=== PATIENT | female | born 1995 | race Caucasian/White ===

== ENCOUNTER 2018-03-14 09:58 | Emergency (ER) | payer OTHER ==
[~2018-03-14] VITALS: Ht 175.3 cm; Wt 81.6 kg
[~2018-03-14 09:58] MED LIST: MUCINEX DM TABL1 BOX
[2018-03-14] MEDS ORDERED: CIPRO500 MG PO (12:28)
== END 2018-03-14 12:38 | disposition home or self-care (01) ==
LOC: ER 09:58
DX: N39.0 Urinary tract infection, site not specified (principal)

== ENCOUNTER 2020-09-13 16:33 | Emergency (ER) | payer OTHER ==
[~2020-09-13] VITALS: Ht 175.3 cm; Wt 90.7 kg
[~2020-09-13 16:33] MED LIST changes: +CIPRO500 MG PO
[2020-09-13] MEDS ORDERED: BACTRIM DS TAB1 EACH PO (18:31)
[2020-09-13] MEDS ORDERED: DICLOFENAC SODI75 MG PO (18:31)
== END 2020-09-13 18:43 | disposition home or self-care (01) ==
LOC: ER 16:33
DX: N83.292 Other ovarian cyst, left side (principal)

== ENCOUNTER 2020-09-21 00:27 | Emergency (ER) | payer OTHER ==
[~2020-09-21] VITALS: Ht 175.3 cm; Wt 90.7 kg
[~2020-09-21 00:27] MED LIST changes: +BACTRIM DS TAB1 EACH PO; +DICLOFENAC SODI75 MG PO
[2020-09-21] MEDS ORDERED: FEOSOL325 MG (00:44)
== END 2020-09-21 02:23 | disposition home or self-care (01) ==
LOC: ER 00:27
DX: R20.8 Other disturbances of skin sensation (principal); R07.89 Other chest pain; F41.0 Panic disorder [episodic paroxysmal anxiety]; Z03.818 Encounter for observation for suspected exposure to other biological agents ruled out

== ENCOUNTER → 2021-06-09 | Emergency (ER) | payer OTHER ==
[~2021-06-09] VITALS: Ht 175.3 cm; Wt 96.2 kg
[~2021-06-09] MED LIST changes: +FEOSOL325 MG; +NORFLEX100MG PO; +ZITHROMAX500 MG PO
== END | disposition home or self-care (01) ==
LOC: ER 10:33
DX: M54.5 Low back pain (principal); R20.2 Paresthesia of skin; Z03.818 Encounter for observation for suspected exposure to other biological agents ruled out

== ENCOUNTER 2021-11-17 14:23 | Emergency (ER) | payer OTHER ==
[~2021-11-17] VITALS: Ht 175.3 cm; Wt 95.3 kg
[2021-11-17] MEDS ORDERED: TUSNEL LIQUID178 ML PO (19:24)
[2021-11-17] MEDS ORDERED: FLONASE ALLERG9.9 ML NASAL (19:24)
[2021-11-17] MEDS ORDERED: MEDROLPACK PO (19:24)
== END 2021-11-17 19:57 | disposition home or self-care (01) ==
LOC: ER 14:23
DX: J40 Bronchitis, not specified as acute or chronic (principal); R05.9 Cough, unspecified

== ENCOUNTER 2021-11-22 12:11 | Emergency (ER) | payer OTHER ==
[~2021-11-22] VITALS: Ht 175.3 cm; Wt 95.3 kg
[~2021-11-22 12:11] MED LIST changes: +FLONASE ALLERG9.9 ML NASAL; +MEDROLPACK PO; +TUSNEL LIQUID178 ML PO
[2021-11-22] MEDS ORDERED: MORGIDOX100 MG (12:45)
[2021-11-22] MEDS ORDERED: PEPCID AC20 MG PO (16:41)
[2021-11-22] MEDS ORDERED: ZITHROMAX500 MG PO (16:41)
[2021-11-22] MEDS ORDERED: VISTARIL50 MG PO (16:41)
== END 2021-11-22 16:46 ==
LOC: ER 12:11 → EMR PED 12:13 → ER 12:13
DX: J06.9 Acute upper respiratory infection, unspecified (principal); F41.8 Other specified anxiety disorders; E86.0 Dehydration; K29.00 Acute gastritis without bleeding; A49.3 Mycoplasma infection, unspecified site

== ENCOUNTER 2021-12-01 01:18 | Emergency (ER) | payer OTHER ==
[~2021-12-01] VITALS: Ht 175.3 cm; Wt 90.7 kg
[~2021-12-01 01:18] MED LIST changes: +MORGIDOX100 MG; +PEPCID AC20 MG PO; +VISTARIL50 MG PO
[2021-12-01] MEDS ORDERED: B12 ACTIVE1000 MCG PO (04:31)
== END 2021-12-01 04:39 ==
LOC: ER 01:18
DX: E86.0 Dehydration (principal); R20.2 Paresthesia of skin

== ENCOUNTER 2022-03-14 16:36 | Emergency (ER) | payer OTHER ==
[~2022-03-14] VITALS: Ht 175.3 cm; Wt 89.8 kg
[~2022-03-14 16:36] MED LIST changes: +B12 ACTIVE1000 MCG PO
== END 2022-03-14 22:41 | disposition home or self-care (01) ==
LOC: ER 16:36
DX: K52.9 Noninfective gastroenteritis and colitis, unspecified (principal)

== ENCOUNTER → 2022-05-25 | Emergency (ER) | payer OTHER | END | disposition home or self-care (01) | LOC: ER 17:58 | DX: S20.219A Contusion of unspecified front wall of thorax, initial encounter (principal); S10.93XA Contusion of unspecified part of neck, initial encounter; X58.XXXA Exposure to other specified factors, initial encounter; Y93.9 Activity, unspecified; Y92.9 Unspecified place or not applicable; Y99.9 Unspecified external cause status ==

== ENCOUNTER 2022-09-12 16:21 | Emergency (ER) | payer OTHER ==
[~2022-09-12] VITALS: Ht 170.2 cm; Wt 59.0 kg
== END 2022-09-12 21:28 | disposition home or self-care (01) ==
LOC: ER 16:21
DX: R10.84 Generalized abdominal pain (principal); N83.202 Unspecified ovarian cyst, left side

== ENCOUNTER 2024-05-26 06:32 | Emergency (ER) | payer OTHER ==
[~2024-05-26] VITALS: Ht 175.3 cm; Wt 81.6 kg
[2024-05-26] MEDS ORDERED: ONDANSETRON HCL 2 MG/ML VIAL IV STA (07:50)
[2024-05-26] MEDS ORDERED: HYOSCYAMINE SULFATE 0.125 MG TAB.SUBL SL STA (07:50)
[2024-05-26] MEDS ORDERED: FAMOTIDINE/PF 20 MG/2 ML VIAL IV PUSH STA (07:50)
[2024-05-26] MEDS ORDERED: 0.9 % SODIUM CHLORIDE 1,000 ML IV ONE (08:00)
[2024-05-26] MEDS ORDERED: HYOSCYAMINE SULFATE 0.125 MG TAB.SUBL ONE (08:01)
[2024-05-26] MEDS ORDERED: ONDANSETRON HCL 2 MG/ML VIAL ONE (08:01)
[2024-05-26] MEDS ORDERED: FAMOtidine 200mg/20ml VIAL ONE (08:02)
[2024-05-26] MEDS ORDERED: BARIUM SULFATE 450 ML ORAL.SUSP PO ONE (08:04)
[2024-05-26 08:32] LABS: HEMATOCRIT 31.1 % (36.0-45.00); HEMOGLOBIN 10.4 g/dL (12.0-15.00); MEAN CELL VOLUME 79.5 fL (80.00-100.00); MEAN CORPUSCULAR HEMOGLOBIN 26.7 pg (27.00-32.0); MEAN CORPUSCULAR HGB CONC 33.6 g/dl (32.0-36.0); PLATELET COUNT 305 K/uL (150-450); RED BLOOD COUNT 3.91 M/uL (4.00-6.00); RED CELL DISTRIBUTION WIDTH 14.9 % (11.5-14.5)
[2024-05-26 08:43] LABS: PH,URINE 6.5 (5.0-8.0); URINE APPEARANCE Clear; URINE BILIRRUBIN Negative (NEGATIVE); URINE BLOOD Negative; URINE COLOR Dark Yellow; URINE GLUCOSE Negative (NEGATIVE); URINE LEUKOCYTE Negative; URINE NITRATE Negative; URINE PROTEIN Trace (NEGATIVE)
[2024-05-26 08:44] LABS: URINE BACTERIA 1661.7 uL (0.0-1933); URINE EPITHELIAL CELLS 24.5 uL (0.0-38.8); URINE RBC 23.6 uL (0.0-20.8)
[2024-05-26 09:16] LABS: INR 1.03; PARTIAL THROMBOPLASTIN TIME 26.5 SECONDS (22.0-34.0); PROTHROMBIN TIME 10.8 SECONDS (9.0-11.5)
[2024-05-26 09:19] LABS: ALBUMIN 3.4 gm/dL (3.4-5.0); ALKALINE PHOSPHATASE 53 U/L (50-136); ALT/SGPT 15 U/L (12-78); AMYLASE 31 U/L (25-115); ANION GAP 7 (10.0-20.0); AST/SGOT 10 U/L (15-37); BILIRUBIN TOTAL 0.74 mg/dL (0.3-1.2); BILIRUBIN,CONJUGATED 0.22 mg/dL (0.0-0.2); BILIRUBIN,UNCONJUGATED 0.52 mg/dL (0.0-0.6); BLOOD UREA NITROGEN 6 mg/dL (7-18); BUN CREA RATIO 11 (7.0-25.0); CALCIUM 8.6 mg/dL (8.5-10.1); CARBON DIOXIDE 26 mEq/L (21-32); CHLORIDE 111 mmol/L (98-107); CREATININE SERUM 0.57 mg/dL (0.55-1.02); GLOBULINA 3.6 G/DL (2.4-3.5); GLUCOSE FASTING 86 mg/dL (65-100); LIPASE 24 U/L (13-75); OSMOLALITY SERUM 276 MOSM/KG (275-295); POTASSIUM 3.95 mEq/L (3.5-5.1); SODIUM 140 mmol/L (136-145)
[2024-05-26 09:24] LABS: HCG QUANTITATIVE < 1 mUI/mL (1-3)
== END 2024-05-26 13:20 | disposition home or self-care (01) ==
LOC: ER 06:33
PROVIDERS: General Practice
DX: K52.9 Noninfective gastroenteritis and colitis, unspecified (principal); R10.9 Unspecified abdominal pain
CPT/HCPCS: 36415; 74177; Q9965

== ENCOUNTER 2024-05-28 19:54 | Inpatient (IN) | payer OTHER ==
[~2024-05-28] VITALS: Ht 175.3 cm; Wt 81.6 kg
[2024-05-28] MEDS ORDERED: CIPRO500 MG PO (20:55)
[2024-05-28] MEDS ORDERED: FLAGYL I.V500 MG/100 IV (20:55)
--- NOTE | 2024-05-28 20:56 | NUR ---
PTE ALERTA Y ORIENTADA X3. REIFERE DOLOR POR DIVERTICULOS EN LA PARTE BAJA DEL ABDOMEN. ATWOOD DR.RICKY STEVENS RECOMENDO VENIR A ER SI EL DOLOR SE INTENSIFICABA. SE STALIN SV Y SE UBICA
[2024-05-28] MEDS ORDERED: 0.9 % SODIUM CHLORIDE 500 ML IV ONE (21:30)
[2024-05-28] MEDS ORDERED: FAMOtidine 20 MG TABLET PO ONE (21:30)
[2024-05-28] MEDS ORDERED: FAMOTIDINE/PF 20 MG/2 ML VIAL ONE (21:34)
--- NOTE | 2024-05-28 21:40 | NUR ---
SE ORIENTA A PACIENTE SOBRE TX MEDICO, REFIERE ENTENDER. SE REALIZAN MUESTRAS DE LABORATORIO BAJO MEDIDAS ASEPTICAS. SE ADMINISTRAN MEDICAMENTOS ISSA ORDEN MEDICA. PACIENTE MANEJADA POR . PENDIENTE RE-EVALUACION MEDICA.
[2024-05-28] MEDS ORDERED: CIPROFLOXACIN IN 5 % DEXTROSE 400 MG/200 ML PIGGYBAG IV ONE ×2 (21:44→21:45)
[2024-05-28] MEDS ORDERED: METRONIDAZOLE/SODIUM CHLORIDE 500 MG/100 ML PIGGYBACK IV ONE ×2 (21:44→21:45)
[2024-05-28] MEDS ORDERED: FAMOTIDINE/PF 20 MG/2 ML VIAL IV ONE (21:45)
[2024-05-28 21:52] LABS: HEMATOCRIT 31.3 % (36.0-45.00); HEMOGLOBIN 10.8 g/dL (12.0-15.00); MEAN CELL VOLUME 80.9 fL (80.00-100.00); MEAN CORPUSCULAR HEMOGLOBIN 28.1 pg (27.00-32.0); MEAN CORPUSCULAR HGB CONC 34.7 g/dl (32.0-36.0); PLATELET COUNT 323 K/uL (150-450); RED BLOOD COUNT 3.86 M/uL (4.00-6.00); RED CELL DISTRIBUTION WIDTH 14.6 % (11.5-14.5)
[2024-05-28 22:30] LABS: ALBUMIN 3.4 gm/dL (3.4-5.0); BILIRUBIN TOTAL 0.5 mg/dL (0.3-1.2); CALCIUM 9.1 mg/dL (8.5-10.1); CREATININE SERUM 0.71 mg/dL (0.55-1.02); GFR 97.32; GLOBULINA 4.5 G/DL (2.4-3.5); POTASSIUM 3.49 mEq/L (3.5-5.1); TOTAL PROTEIN 7.9 gm/dL (6.4-8.2)
[2024-05-28] MEDS ORDERED: KETOROLAC TROMETHAMINE 15 MG VIAL IU SCH (23:45)
[2024-05-28] MEDS ORDERED: MEPERIDINE HCL/PF 25 MG/ML VIAL IM ONE (23:45)
[2024-05-28] MEDS ORDERED: ACETAMINOPHEN 500 MG GEL..CAP PO PRN (23:45)
[2024-05-28] MEDS ORDERED: MEPERIDINE HCL/PF 25 MG/ML VIAL IM PRN (23:45)
[2024-05-28] MEDS ORDERED: 0.9 % SODIUM CHLORIDE 1,000 ML IV SCH (23:45)
[2024-05-28] MEDS ORDERED: ONDANSETRON HCL 4 MG in 0.9 % SODIUM CHLORIDE 50 ML IV PRN (23:45)
[2024-05-29] MEDS ORDERED: PIPERACILLIN/TAZOBACTAM SODIUM 3.375 GM in DEXTROSE 5 % IN WATER 100 ML IV SCH
[2024-05-29 00:29] LABS: PH,URINE 6.5 (5.0-8.0); URINE APPEARANCE Clear; URINE BILIRRUBIN Negative (NEGATIVE); URINE BLOOD Negative; URINE COLOR Yellow; URINE GLUCOSE Negative (NEGATIVE); URINE KETONE 15 (NEGATIVE); URINE LEUKOCYTE Trace; URINE NITRATE Negative; URINE PROTEIN Negative (NEGATIVE)
[2024-05-29 00:33] LABS: URINE BACTERIA 432.1 uL (0.0-1933); URINE EPITHELIAL CELLS 7.1 uL (0.0-38.8); URINE WBC 4.1 uL (0.0-23.2)
[2024-05-29] MEDS ORDERED: KETOROLAC TROMETHAMINE 30 MG VIAL ONE (00:39)
[2024-05-29 01:55] LABS: INR 1.07; PARTIAL THROMBOPLASTIN TIME 27.5 SECONDS (22.0-34.0); PROTHROMBIN TIME 11.2 SECONDS (9.0-11.5)
[2024-05-29] MEDS ORDERED: FAMOTIDINE/PF 20 MG in 0.9 % SODIUM CHLORIDE 8 ML IV PUSH SCH (09:00)
[2024-05-30] MEDS ORDERED: FAMOTIDINE/PF 20 MG/2 ML VIAL ONE (16:14)
[2024-05-30] MEDS ORDERED: LACTOBACILLUS ACIDOPHILUS 1 CAP CAP PO SCH (17:00)
[2024-05-30] MEDS ORDERED: FAMOTIDINE/PF 20 MG in 0.9 % SODIUM CHLORIDE 8 ML IV SCH (17:00)
== END 2024-05-31 11:30 | disposition home or self-care (01) | DRG 392 ==
LOC: ER 19:55 → MEDJ 23:42 → SEC-K 23:42 → MEDJ 05-29 00:38
PROVIDERS: General Practice; Nurse Practitioner Family; ADMIT Internal Medicine; ATTEND Internal Medicine
PROC: BW21ZZZ Computerized Tomography (CT Scan) of Abdomen and Pelvis (ICD-10-PCS; principal; 2024-05-28)
DX: K57.32 Diverticulitis of large intestine without perforation or abscess without bleeding (principal); K21.9 Gastro-esophageal reflux disease without esophagitis; F41.1 Generalized anxiety disorder

== ENCOUNTER 2024-09-11 16:56 | Emergency (ER) | payer OTHER ==
[~2024-09-11] VITALS: Ht 175.3 cm; Wt 77.1 kg
[~2024-09-11 16:56] MED LIST changes: +FLAGYL I.V500 MG/100 IV
[2024-09-11 17:54] VITALS: BP 118/77; O2SAT 100
[2024-09-11] MEDS ORDERED: ACETAMINOPHEN 500 MG GEL..CAP PO ONE (18:45)
[2024-09-11] MEDS ORDERED: 0.9 % SODIUM CHLORIDE 500 ML IV ONE (18:45)
[2024-09-11] MEDS ORDERED: ONDANSETRON HCL 2 MG/ML VIAL IV ONE (18:45)
[2024-09-11 19:34] LABS: HEMATOCRIT 34.2 % (36.0-45.00); HEMOGLOBIN 11.6 g/dL (12.0-15.00); MEAN CELL VOLUME 80.5 fL (80.00-100.00); MEAN CORPUSCULAR HEMOGLOBIN 27.3 pg (27.00-32.0); MEAN CORPUSCULAR HGB CONC 33.9 g/dl (32.0-36.0); PLATELET COUNT 276 K/uL (150-450); RED BLOOD COUNT 4.24 M/uL (4.00-6.00); RED CELL DISTRIBUTION WIDTH 14.8 % (11.5-14.5)
[2024-09-11 20:14] LABS: ALBUMIN 4.2 gm/dL (3.4-5.0); BILIRUBIN TOTAL 0.69 mg/dL (0.3-1.2); CALCIUM 9.6 mg/dL (8.5-10.1); CREATININE SERUM 0.78 mg/dL (0.55-1.02); GFR 86.72; GLOBULINA 4.8 G/DL (2.4-3.5); POTASSIUM 3.49 mEq/L (3.5-5.1)
[2024-09-11 20:49] LABS: PH,URINE 6.5 (5.0-8.0); URINE APPEARANCE Clear; URINE BILIRRUBIN Negative (NEGATIVE); URINE BLOOD Negative; URINE COLOR Yellow; URINE GLUCOSE Negative (NEGATIVE); URINE LEUKOCYTE Negative; URINE NITRATE Negative; URINE PROTEIN Trace (NEGATIVE); URINE UROBILINOGEN 0.2 E.U./dl
[2024-09-11 20:50] LABS: URINE CAST 0.45 uL (0.0-1.40); URINE EPITHELIAL CELLS 10.6 uL (0.0-38.8); URINE KETONE >=160 (NEGATIVE); URINE RBC 26.2 uL (0.0-20.8); URINE WBC 20.8 uL (0.0-23.2)
[2024-09-11] MEDS ORDERED: KETOROLAC TROMETHAMINE 30 MG VIAL IV ONE (21:15)
== END 2024-09-11 22:24 ==
LOC: ER 16:58
PROVIDERS: Nurse Practitioner Family
DX: R10.9 Unspecified abdominal pain (principal); K57.32 Diverticulitis of large intestine without perforation or abscess without bleeding; E16.1 Other hypoglycemia; K29.70 Gastritis, unspecified, without bleeding; Z91.041 Radiographic dye allergy status; Z20.822 Contact with and (suspected) exposure to COVID-19

== ENCOUNTER 2025-08-01 23:44 | Emergency (ER) | payer OTHER ==
[~2025-08-01] VITALS: Ht 175.3 cm; Wt 83.9 kg
[2025-08-02] MEDS ORDERED: ONDANSETRON HCL 4 MG in 0.9 % SODIUM CHLORIDE 50 ML IV ONE (01:00)
[2025-08-02] MEDS ORDERED: FAMOtidine 10 MG/ML (4ML VIAL) IV PUSH ONE (01:00)
[2025-08-02] MEDS ORDERED: KETOROLAC TROMETHAMINE 30 MG VIAL ONE (01:01)
[2025-08-02] MEDS ORDERED: ONDANSETRON HCL 2 MG/ML VIAL ONE (01:01)
[2025-08-02] MEDS ORDERED: FAMOTIDINE/PF 20 MG/2 ML VIAL ONE (01:01)
[2025-08-02] MEDS ORDERED: KETOROLAC TROMETHAMINE 30 MG VIAL IV ONE (01:15)
[2025-08-02] MEDS ORDERED: 0.9 % SODIUM CHLORIDE 1,000 ML IV SCH (01:15)
[2025-08-02 01:36] LABS: BASO % 0.2 % (0.1-1.2); EOS # 0.01 (0.04-0.54); EOS % 0.1 % (0.7-7.0); LYMPH # 1.44 (1.18-3.74); LYMPH % 15.0 % (19.3-53.1); MEAN PLATELET VOLUME 10.00 fl (9.4-12.4); MONO # 0.62 (0.24-0.82); MONO % 6.5 % (4.7-12.5); NEUT # 7.44 (1.56-6.13); NEUT % 77.8 % (34.0-71.1); RED CELL DISTRIBUTION WIDTH 15.0 % (11.6-14.4)
[2025-08-02 02:05] LABS: ALT/SGPT 26 U/L (12-78); AST/SGOT 15 U/L (15-37); BILIRUBIN TOTAL 0.60 mg/dL (0.3-1.2); BUN CREA RATIO 10 (7.0-25.0); CREATININE SERUM 0.67 mg/dL (0.55-1.02); GFR 102.66; GLOBULINA 4.3 G/DL (2.4-3.5); GLUCOSE FASTING 90 mg/dL (65-100); OSMOLALITY SERUM 281 MOSM/KG (275-295)
[2025-08-02 02:25] LABS: HCG QUANTITATIVE < 1 mUI/mL (1-3)
[2025-08-02 02:31] LABS: URINE APPEARANCE Clear; URINE BILIRRUBIN Negative (NEGATIVE); URINE BLOOD Negative; URINE COLOR Yellow; URINE GLUCOSE Negative (NEGATIVE); URINE KETONE Trace (NEGATIVE); URINE LEUKOCYTE Small; URINE NITRATE Negative; URINE PROTEIN Negative (NEGATIVE); URINE UROBILINOGEN 1.0 E.U./dl
[2025-08-02 02:34] LABS: URINE BACTERIA 403.1 uL (0.0-1933); URINE EPITHELIAL CELLS 23.0 uL (0.0-38.8); URINE RBC 8.5 uL (0.0-20.8); URINE WBC 34.0 uL (0.0-23.2)
[2025-08-02 02:35] LABS: URINE CAST 0.00 uL (0.0-1.40)
[2025-08-02] MEDS ORDERED: CEFTRIAXONE SODIUM 2,000 MG VIAL ONE (04:08)
[2025-08-02] MEDS ORDERED: CEFTRIAXONE SODIUM 2,000 MG VIAL IV ONE (04:15)
[2025-08-02] MEDS ORDERED: BACTRIM DS TAB1 EACH PO (06:54)
[2025-08-02] MEDS ORDERED: ACETAMINOPHEN500 M1 PO (06:54)
[2025-08-02] MEDS ORDERED: PEPCID AC20 MG PO (12:36)
== END 2025-08-02 07:10 | disposition home or self-care (01) ==
LOC: ER 23:44
PROVIDERS: General Practice
DX: K57.92 Diverticulitis of intestine, part unspecified, without perforation or abscess without bleeding (principal); N39.0 Urinary tract infection, site not specified; R10.32 Left lower quadrant pain; R10.9 Unspecified abdominal pain; E16.2 Hypoglycemia, unspecified; Z91.041 Radiographic dye allergy status

== ENCOUNTER 2025-08-02 08:09 | Emergency (ER) | payer OTHER ==
[~2025-08-02] VITALS: Ht 175.3 cm; Wt 83.9 kg
[~2025-08-02 08:09] MED LIST changes: +ACETAMINOPHEN500 M1 PO
[2025-08-02] MEDS ORDERED: CIPROFLOXACIN IN 5 % DEXTROSE 400 MG/200 ML PIGGYBAG IV ONE ×2 (08:51→09:00)
[2025-08-02] MEDS ORDERED: METRONIDAZOLE/SODIUM CHLORIDE 500 MG/100 ML PIGGYBACK IV ONE ×2 (08:52→09:00)
[2025-08-02] MEDS ORDERED: 0.9 % SODIUM CHLORIDE 1,000 ML IV SCH (09:00)
[2025-08-02] MEDS ORDERED: PEPCID AC20 MG PO (12:36)
== END 2025-08-02 12:56 | disposition home or self-care (01) ==
LOC: ER 08:09
DX: K57.32 Diverticulitis of large intestine without perforation or abscess without bleeding (principal); E16.1 Other hypoglycemia; R01.1 Cardiac murmur, unspecified; Z91.041 Radiographic dye allergy status